=== PATIENT | male | born 1970 | race Caucasian/White ===

== ENCOUNTER 2024-08-22 21:27 | Emergency (ER) | payer BC ==
[~2024-08-22] VITALS: Ht 177.8 cm; Wt 129.7 kg
[2024-08-22] MEDS: CLONIDINE HCL 0.1 MG TAB PO ONE (22:34)
[2024-08-23 02:50] VITALS: PULSE 66; RESP 18; TEMP 98
[2024-08-23 02:53] VITALS: BP 141/93; PULSE 66; RESP 18; TEMP 98; O2SAT 95
[2024-08-23] MEDS ORDERED: CLONIDINE HCL0.1 MG PO (02:53)
== END 2024-08-23 03:13 | disposition home or self-care (01) ==
LOC: FSED 21:40 → EDBD 21:40 → FSED 08-23 03:13
DX: I10 Essential (primary) hypertension (principal); R51.9 Headache, unspecified; R42 Dizziness and giddiness; E66.9 Obesity, unspecified
CPT/HCPCS: 70450; 71046; 80048; 82553; 84484; 85025; 93005; 93970; 99284